=== PATIENT | male | born 1990 | race Caucasian/White ===

== ENCOUNTER 2022-01-03 01:23 | Emergency (ER) | payer SELFPAY ==
--- NOTE | ~2022-01-03 | XR_ITS ---
EXAMINATION: XR CHEST CLINICAL INFORMATION: Upper back pain COMPARISON: None TECHNIQUE: 2 views of the chest were obtained. FINDINGS: The lungs are well expanded. There is no focal consolidation, edema, or effusion. No pneumothorax. The cardiomediastinal silhouette is within normal limits. No acute osseous abnormality. XR/XR chest 2V IMPRESSION: Clear lungs.
[2022-01-03 01:25] VITALS: BP 144/120; PULSE 98; RESP 18; TEMP 36.3; O2SAT 98; BMI 27.7
--- NOTE | 2022-01-03 02:06 | ED_ITS ---
HPI - Abdominal Pain General Chief Complaint: Abdominal Pain Stated Complaint: stomach pain, vomiting blood, faitgue Time Seen by Provider: 01/03/22 01:37 Source: patient Mode of arrival: ambulatory Limitations: no limitations History of Present Illness HPI narrative: Patient alcoholic been having epigastric pain for last few weeks got worse last night with increased nausea and vomiting vomited 2 x 1st time was bright red blood 2nd time was less blood than 1st no blood clots, no melena no history of pancreatitis patient does drink every day vodka and is alcoholic no abdominal distension no fever or chills Related Data Previous Rx's Medication Instructions Recorded lorazepam 1 mg tablet (Ativan) 1 mg PO Q4-6H PRN alcohol 01/03/22 withdrawal #20 tabs pantoprazole 40 mg tablet,delayed 40 mg PO DAILY #30 tabs 01/03/22 release (Protonix) sucralfate 1 gram tablet 1 g PO TID #90 tabs 01/03/22 Allergies Allergy/AdvReac Type Severity Reaction Status Date / Time No Known Allergies Allergy Verified 01/03/22 01:31 Review of Systems Review of Systems Yes all other systems are reviewed and are negative FOR[facility] Social History Social History Advance Directives: No Advance Directives Information Provided: No Physical Exam ED Vital Signs: Vital Signs - 24 hr 01/03/22 01:25 Temperature 97.4 F Pulse Rate 98 Respiratory Rate 18 Blood Pressure 144/120 H Pulse Oximetry 98 Oxygen Delivery Method Room Air BMI result Body Mass Index 27.7 Appearance: Alert. Oriented X3. No acute distress. Eyes: PERRLA, No Nystagmus no pallor or icterus ENT: Pharynx normal. Oral Mucosa moist Neck: Normal inspection. Neck supple. CVS: Normal heart rate and rhythm. Pulses normal. Respiratory: No respiratory distress. Equal air entry bilateral, no wheezing/rales/rhonchi Abdomen: Soft and nontender. Bowel sounds are present, no mass palpable, no CVA tenderness Skin: Skin warm and dry. Normal skin color. Normal skin turgor. Extremities: No lower extremity edema. No calf tenderness Neuro: Oriented X 3. No motor deficit. Medications Administered Discontinued Medications Generic Name Dose Route Start Last Admin Trade Name Freq PRN Reason Stop Dose Admin Al Hydroxide/Mg Hydroxide 30 ml 01/03/22 04:05 01/03/22 04:30 Magnesium Hydrox/Alum Hydrox 30 Ml Oral.Susp PO 01/03/22 04:06 30 ml ONCE ONE Administration Sodium Chloride 1,000 mls @ 999 mls/hr 01/03/22 02:07 01/03/22 04:31 Ns IV 01/03/22 03:07 Infused .Q1H1M ONE Infusion Lorazepam 2 mg 01/03/22 04:05 01/03/22 04:30 Lorazepam 1 Mg Tablet PO 01/03/22 04:06 2 mg ONCE ONE Administration Midazolam HCl 1 mg 01/03/22 02:08 01/03/22 02:32 Midazolam Hcl/Pf 2 Mg/2 Ml Vial IVPUSH 01/03/22 02:09 1 mg ONCE ONE Administration Ondansetron HCl 4 mg 01/03/22 02:10 01/03/22 02:32 Ondansetron Hcl 4 Mg/2 Ml Vial IVPUSH 01/03/22 02:11 4 mg ONCE ONE Administration Pantoprazole Sodium 40 mg 01/03/22 02:08 01/03/22 02:32 Pantoprazole Sodium 40 Mg/10 Ml Vial IVPUSH 01/03/22 02:09 40 mg ONCE ONE Administration MDM - Abdominal Pain MDM Narrative Medical decision making narrative: Patient with alcoholic gastritis able to drink p.o. fluids in the ER no more vomiting H&H stable advised to stop drinking will give her Protonix patient home Lab Data Attestation: I reviewed the patient's lab results. Result diagrams: 01/03/22 02:27 01/03/22 02:27 Labs: Lab Results 01/03/22 01/03/22 01/03/22 Range/Units 02:27 02:27 02:27 WBC 7.3 (4.8-10.8) X10*3/uL RBC 4.78 (4.60-5.80) X10*6/uL Hgb 15.7 (14.0-18.0) g/dl Hct 45.3 (42.0-52.0) % MCV 94.8 (80.0-98.0) fL MCH 32.8 (27.0-33.0) pg MCHC 34.7 (31.0-36.0) g/dl RDW 11.4 (11.0-16.0) % Plt Count 239 (160-400) X10*3/uL MPV 8.9 L (9.4-12.4) fL Immature Gran % (Auto) 0.4 (0.0-0.4) % Neut % (Auto) 77.9 H (45-73) % Lymph % (Auto) 13.0 L (20-40) % [place] % (Auto) 7.9 (2-11) % Eos % (Auto) 0.0 (0-4) % Baso % (Auto) 0.8 (0-2) % Lymph # (Auto) 1.0 L (1.2-4.9) X10*3/uL [place] # (Auto) 0.6 (0.1-1.2) X10*3/uL Eos # (Auto) 0.0 (0.0-0.4) X10*3/uL Baso # (Auto) 0.1 (0.0-0.2) X10*3/uL Abs Immat Gran (auto) 0.03 (0.00-0.03) X10*3/uL Absolute Neuts (auto) 5.7 (2.0-8.3) x10*3/uL Absolute Nucleated RBC 0.000 (0.0-0.012) X10*3/uL Nucleated RBC % (auto) 0.0 (0.0-0.2) /100WBC PT 10.9 (10.0-13.1) SEC INR 1.0 (0.9-1.1) Sodium 138 (135-145) mmol/L Potassium 4.2 (3.3-5.1) mmol/L Chloride 99 (96-108) mmol/L Carbon Dioxide 26 (22-29) mmol/L Anion Gap 17 (12-20) BUN 14 (9-16) mg/dL Creatinine 0.84 (0.5-1.4) mg/dL Estim Creat Clear Calc 130.5 Estimated GFR > 60 Random Glucose 108 (60-115) mg/dL Calcium 11.0 H (8.4-10.2) mg/dL Magnesium 1.7 (1.6-2.6) mg/dL Total Bilirubin 2.6 H (0.0-1.0) mg/dL AST 55 H (5-37) U/L ALT 60 H (0-40) U/L Alkaline Phosphatase 59 (39-117) U/L Total Protein 7.5 (6.5-8.0) g/dL Albumin 5.0 (3.5-5.0) g/dL Lipase 18 (8-78) U/L Ethyl Alcohol mg/dL 01/03/ Range/Units 02:27 WBC (4.8-10.8) X10*3/uL RBC (4.60-5.80) X10*6/uL Hgb (14.0-18.0) g/dl Hct (42.0-52.0) % MCV (80.0-98.0) fL MCH (27.0-33.0) pg MCHC (31.0-36.0) g/dl RDW (11.0-16.0) % Plt Count (160-400) X10*3/uL MPV (9.4-12.4) fL Immature Gran % (Auto) (0.0-0.4) % Neut % (Auto) (45-73) % Lymph % (Auto) (20-40) % [place] % (Auto) (2-11) % Eos % (Auto) (0-4) % Baso % (Auto) (0-2) % Lymph # (Auto) (1.2-4.9) X10*3/uL [place] # (Auto) (0.1-1.2) X10*3/uL Eos # (Auto) (0.0-0.4) X10*3/uL Baso # (Auto) (0.0-0.2) X10*3/uL Abs Immat Gran (auto) (0.00-0.03) X10*3/uL Absolute Neuts (auto) (2.0-8.3) x10*3/uL Absolute Nucleated RBC (0.0-0.012) X10*3/uL Nucleated RBC % (auto) (0.0-0.2) /100WBC PT (10.0-13.1) SEC INR (0.9-1.1) Sodium (135-145) mmol/L Potassium (3.3-5.1) mmol/L Chloride (96-108) mmol/L Carbon Dioxide (22-29) mmol/L Anion Gap (12-20) BUN (9-16) mg/dL Creatinine (0.5-1.4) mg/dL Estim Creat Clear Calc Estimated GFR Random Glucose (60-115) mg/dL Calcium (8.4-10.2) mg/dL Magnesium (1.6-2.6) mg/dL Total Bilirubin (0.0-1.0) mg/dL AST (5-37) U/L ALT (0-40) U/L Alkaline Phosphatase (39-117) U/L Total Protein (6.5-8.0) g/dL Albumin (3.5-5.0) g/dL Lipase (8-78) U/L Ethyl Alcohol < 10 mg/dL Discharge Plan Discharge Clinical Impression: Alcoholic gastritis with bleeding Patient Disposition: Home, Self-Care Instructions: Gastritis (ED), Alcohol Dependence (ED) Additional Instructions: Stop drinking alcohol Lorazepam for alcohol withdrawal as prescribed Protonix daily Follow-up with tube filler/PCP Prescriptions: New pantoprazole [Protonix] 40 mg tablet,delayed release (DR/EC) 40 mg PO DAILY Qty: 30 2RF sucralfate 1 gram tablet 1 g PO TID Qty: 90 2RF lorazepam [Ativan] 1 mg tablet 1 mg PO Q4-6H PRN (Reason: alcohol withdrawal) Qty: 20 0RF
--- OUTSIDE RECORDS SUMMARY | 2022-01-03 02:12 | XMS_ITS | Continuity of Care Document ---
:1990 Author Organization [facility] Address [address] [place] [address]- Care Team Providers Name Role Phone Not on Staff, PCP Primary Care Physician Unavailable Encounter [facility] NBR [id number] Date(s): 07/06/21 - 07/06/[address] [address]- Discharge Disposition: A-D/C Home Attending Physician: Thomas Ovalle MD Admitting Physician: Thomas Ovalle MD Referring Physician: Not on Staff, Referring MD Allergies, Adverse Reactions, Alerts No Known Medication Allergies Medications No Known Medications Vital Signs Most recent to oldest [Reference Range]: 1 2 Height 170.18 cm (07/06/21 9:27 PM) Weight 84.4 kg (07/06/21 9:27 PM) Oxygen Saturation [94-100 %] 96 % 97 % (07/06/21 10:55 PM) (07/06/21 9:27 PM) Pulse Rate [55-90 bpm] 85 bpm 92 bpm (07/06/21 10:55 PM) *H* (07/06/21 9:27 PM) Blood Pressure [90-138/55-84 mm Hg] 139/91 mm Hg 155/ 78 mm Hg *H* *H* (07/06/21 10:55 PM) (07/06/21 9:27 PM) Respiratory Rate [16-30 br/min] 18 br/min 18 br/mi n (07/06/21 10:55 PM) (07/06/21 9:27 PM) Temperature [96.8-100.4 DegF] 98.7 DegF 98.0 DegF (07/06/21 10:55 PM) (07/06/21 9:27 PM) Mode of Delivery (Oxygen) Room air Room air (07/06/21 10:55 PM) (07/06/21 9:27 PM) Blood pressure sites Arm, right (07/06/21 9:27 PM) Temperature Route Temporal (07/06/21 9:27 PM) Dry Weight 84.4 kg (07/06/21 9:27 PM) Weight Obtained Via Standing scale (07/06/21 9:27 PM) Dry Weight Obtained Via Standing scale (07/06/21 9:27 PM) Social History Social History Type Response Smoking Status Cigars or pipes but not crissy y within last 30 days entered on: 07/06/21 Sex
[2022-01-03 02:31] LABS: MANUAL DIFF FLAG NO
[2022-01-03] MEDS: Pantoprazole Sodium 40 MG/10 ML VIAL IVPUSH (02:32)
[2022-01-03] MEDS: ondansetron HCL 4 MG/2 ML VIAL IVPUSH (02:32)
[2022-01-03] MEDS: Midazolam HCl/PF 2 MG/2 ML VIAL 1 MG IVPUSH (02:32)
[2022-01-03] MEDS: 0.9 % Sodium Chloride 1,000 ML 999 ML IV (02:33)
[2022-01-03 02:34] LABS: Basophils Absolute Auto 0.1 X10*3/uL (0.0-0.2); Basophils Percent Auto 0.8 % (0-2); Hematocrit 45.3 % (42.0-52.0); Hemoglobin 15.7 g/dl (14.0-18.0); Imm Gran Abs Auto 0.03 X10*3/uL (0.00-0.03); Imm Gran Pct Auto 0.4 % (0.0-0.4); Mean Corpuscular HGB Conc 34.7 g/dl (31.0-36.0); Mean Corpuscular Hemoglobin 32.8 pg (27.0-33.0); Mean Corpuscular Volume 94.8 fL (80.0-98.0); Mean Platelet Volume 8.9 fL (9.4-12.4); Monocytes Absolute Auto 0.6 X10*3/uL (0.1-1.2); Monocytes Percent Auto 7.9 % (2-11); Neutrophils Absolute Auto 5.7 x10*3/uL (2.0-8.3); Neutrophils Percent Auto 77.9 % (45-73); Platelet Count 239 X10*3/uL (160-400); Red Blood Count 4.78 X10*6/uL (4.60-5.80); Red Cell Distribution Width 11.4 % (11.0-16.0); White Blood Count 7.3 X10*3/uL (4.8-10.8)
[2022-01-03 02:39] LABS: Prothrombin Time 10.9 SEC (10.0-13.1)
[2022-01-03 02:50] LABS: Alanine Aminotransferase 60 U/L (0-40); Alkaline Phosphatase 59 U/L (39-117); Anion Gap 17 (12-20); Aspartate Amino Transferase 55 U/L (5-37); Bilirubin Total 2.6 mg/dL (0.0-1.0); Blood Urea Nitrogen 14 mg/dL (9-16); Carbon Dioxide 26 mmol/L (22-29); Chloride 99 mmol/L (96-108); Creatinine Clr Calc Pharmacy 130.5; Estimated Glomerular Filt Rate > 60; Glucose Random 108 mg/dL (60-115); Lipase 18 U/L (8-78); Magnesium 1.7 mg/dL (1.6-2.6); Potassium 4.2 mmol/L (3.3-5.1); Sodium 138 mmol/L (135-145); Total Protein 7.5 g/dL (6.5-8.0)
[2022-01-03 02:51] LABS: Ethanol < 10 mg/dL
[2022-01-03] MEDS: LORazepam 1 MG TABLET 2 MG PO (04:30)
[2022-01-03] MEDS: Magnesium Hydrox/Alum Hydrox 30 ML ORAL.SUSP PO (04:30)
== END 2022-01-03 05:13 | disposition home or self-care (01) ==
PROVIDERS: Emergency Provider Internal Medicine
DX: K29.21 Alcoholic gastritis with bleeding (principal); F10.20 Alcohol dependence, uncomplicated; Y90.0 Blood alcohol level of less than 20 mg/100 ml
CPT/HCPCS: 36415; 71046; 80053; 82077; 83690; 83735; 85025; 85610; 96361; 96374; 96375; 99284; J2250; J2405